=== PATIENT | male | born 1975 | race Caucasian/White ===

== ENCOUNTER 2017-04-06 19:08 | Emergency (ER) | payer SELFPAY ==
[~2017-04-06] VITALS: Ht 162.6 cm; Wt 86.2 kg
[2017-04-06 19:16] VITALS: BP 127/87
--- NOTE | 2017-04-06 19:26 | NUR ---
Dr. Tompkins evaluating patient
--- NOTE | 2017-04-06 19:29 | NUR ---
PT COLEEN ALS. TAKEN TO BED 3
--- NOTE | 2017-04-06 19:30 | NUR ---
BIBA. PATIENT PRESENTS TO ED WITH ALOC/ETOH . PT DENIES N/V/D; SKIN IS PINK/WARM/DRY; AAOX4 WITH EVEN AND STEADY GAIT; LUNGS CLEAR BL; HR EVEN AND REGULAR; PT DENIES ANY FEVER, CP, SOB, OR COUGH AT THIS TIME; PATIENT STATES PAIN OF 0/10 AT THIS TIME; VSS; PATIENT POSITIONED FOR COMFORT; HOB ELEVATED; BEDRAILS UP X2; BED DOWN. ER MD MADE AWARE OF PT STATUS.
[2017-04-06] MEDS: NACL 0.9% 1,000 ML IV ONE (19:54)
--- NOTE | 2017-04-06 20:23 | NUR ---
PT TAKEN TO CT
--- NOTE | 2017-04-06 20:31 | NUR ---
PT RETURN FROM CT
[2017-04-06 21:15] VITALS: BP 123/56
--- NOTE | 2017-04-06 21:15 | NUR ---
Patient discharged with v/s stable. Written and verbal after care instructions given and explained. Patient verbalized understanding. Ambulatory with steady gait. All questions addressed prior to discharge. Advised to follow up with PMD.
== END 2017-04-06 21:15 | disposition home or self-care (01) ==
LOC: MED 19:08
DX: F10.129 Alcohol abuse with intoxication, unspecified (principal); R41.82 Altered mental status, unspecified
CPT/HCPCS: 70450; 96360; 99284; J7030